=== PATIENT | male | born 1990 | race Caucasian/White ===

== ENCOUNTER 2024-06-15 21:48 | Emergency (ER) | payer OTHER ==
[2024-06-15 22:30] LABS: Absolute Basophils 0.1 K/uL (0-0.5); Absolute Eosinophils 0.1 K/uL (0-0.5); Absolute Monocytes 0.6 K/uL (0.1-1.3); Basophils % 0.9 % (0-1.3); Eosinophils % 2.4 % (0-4.4); Hematocrit 45.8 % (39.6-49.0); Hemoglobin 15.9 g/dL (13.6-17.9); Lymphocytes % 34.7 % (15.3-44.8); MCH 30.8 pg (27.0-35.0); MCHC 34.7 g/dL (32.0-36.0); MCV 88.7 fL (80-100); MPV 9.6 fL (7.6-11.3); Monocytes % 10.4 % (3.3-12.3); Neutrophils % 51.6 % (41.7-73.7); Nucleated Red Blood Cells % 0.1 % (0-0); Platelets 205 thou/uL (152-406); RBC Red Blood Cell Count 5.16 M/uL (4.33-5.43); Red Cell Distribution Width 13.2 % (12.1-15.2)
[2024-06-15 22:39] LABS: ALT/SGPT 25 U/L (16-61); AST/SGOT 13 U/L (15-37); Albumin/Globulin Ratio 1.2 (1.1-1.8); Alkaline Phosphatase 68 U/L (45-117); Anion Gap 9.5 mEq/L (5.0-15.0); BUN Blood Urea Nitrogen 12 mg/dL (7-18); Bicarbonate 25 mEq/L (21-32); Bilirubin Direct < 0.2 mg/dL (0-0.2); Bilirubin Indirect, Calculated 0.2 mg/dL (0.2-0.8); Bilirubin Total 0.4 mg/dL (0.2-1.0); Globulin 3.4 g/dL (2.3-3.5); Glomerular Filtration Rate 92 ml/min (=/>90); Glucose Level 96 mg/dL (74-106); Magnesium 2.2 mg/dL (1.6-2.4); NT PRO-BNP 7 pg/mL (<125); Potassium 3.5 mEq/L (3.5-5.1); Protein, Total 7.4 g/dL (6.4-8.2); Sodium Level 138 mEq/L (136-145); Troponin High Sensitivity 4.8 pg/mL (<58.9)
--- NOTE | 2024-06-15 23:22 | EDPHYS ---
Physician Documentation [facility] Name: Shantanu Evans Age: 34 yrs Sex: Male : 1990 Arrival Date: 06/15/2024 Time: 21:48 Bed 18 Private MD: ED Physician Flavio Barahona HPI: 06/15 22:25 This 34 yrs old Male presents to ER via EMS with complaints of Chest Pain. kb 22:25 Pt is a 34 year old male who presents for "lung pain" that started one week ago with kb cough. States the pain changed today so he mentioned it to the guards and they called 911. Denies shortness of breath, fever. Historical: - Allergies: 21:54 No Known Allergies; br2 - Immunization history:: Adult Immunizations up to date. - Infectious Disease History:: Denies. - Social history:: Smoking status: Patient/guardian denies using tobacco. ROS: 22:15 Constitutional: As per HPI kb Exam: 22:15 Constitutional: This is a well developed, well nourished patient who is awake, alert, kb and in no acute distress. Head/Face: Normocephalic, atraumatic. ENT: Moist Mucous membranes Cardiovascular: Regular rate Respiratory: Respirations even and unlabored. No increased work of breathing. Talking in full sentences Skin: Warm, dry with normal turgor. Normal color. MS/ Extremity: Pulses equal, no cyanosis. Neurovascular intact. Full, normal range of motion. Neuro: Awake and alert, GCS 15, oriented to person, place, time, and situation. 22:15 ECG was reviewed by the Attending Physician. Vital Signs: 21:51 BP 151 / 85; Pulse 78; Resp 18; Temp 97.4; Pulse Ox 98% on R/A; Weight 88.45 kg; Height br2 5 ft. 11 in. ; Pain 4/10; 22:52 BP 140 / 85; Pulse 74; Resp 13 S; Pulse Ox 98% on R/A; br2 23:22 BP 137 / 82; Pulse 81; Resp 21 S; Pulse Ox 99% on R/A; br2 21:51 Body Mass Index 27.20 (88.45 kg, 180.34 cm) br2 21:51 Pain Scale: Adult br2 MDM: 21:53 Medical Screening Exam initiated kb 23:07 Differential diagnosis: arrhythmia, pe, acute mi. Data reviewed: vital signs, nurses kb notes. Test considered but Not performed: CT: ct chest considered but ddimer negative. Historians other than the Patient: EMS: [facility]. Scoring Tools PERC Rule for PE Age >/= 50 No HR >/= 100 No O2 Sat Room Air < 95% No Unilateral leg swelling No Hemoptysis No Recent surgery or trauma </= 4 wks ago requiring treatment with general anesthesia No (0 pt) Prior PE or DVT No Hormone use (Oral contraceptives, hormone replacement or estrogenic hormones use in males or female patients No. Counseling: I had a detailed discussion with the patient and/or guardian regarding the historical points, exam findings, and any diagnostic results supporting the discharge/admit diagnosis, lab results, radiology results, the need for outpatient follow up, a family practitioner, to return to the emergency department if symptoms worsen or persist or if there are any questions or concerns that arise at home. 23:22 Independent interpretation of the following test(s) in the Emergency Department X-Ray: kb My interpretation is no acute finding. 06/15 21:54 Order name: Basic Metabolic Panel; Complete Time: 22:50 kb 06/15 21:54 Order name: CBC with Diff; Complete Time: 22:35 kb 06/15 21:54 Order name: D-Dimer; Complete Time: 22:50 kb 06/15 21:54 Order name: LFT's; Complete Time: 22:50 kb 06/15 21:54 Order name: Magnesium; Complete Time: 22:50 kb 06/15 21:54 Order name: NT PRO-BNP; Complete Time: 22:50 kb 06/15 21:54 Order name: Troponin HS; Complete Time: 22:50 kb 06/15 21:54 Order name: XRAY Chest (1 view) kb 06/15 21:54 Order name: Cardiac monitoring; Complete Time: 21:59 kb 06/15 21:54 Order name: EKG - Nurse/Tech; Complete Time: 22:00 kb 06/15 21:54 Order name: IV Saline Lock; Complete Time: 22:08 kb 06/15 21:54 Order name: Labs collected and sent; Complete Time: 22:08 kb 06/15 21:54 Order name: O2 Per Protocol; Complete Time: 22:08 kb 06/15 21:54 Order name: O2 Sat Monitoring; Complete Time: 22:09 kb EC:15 Rate is 77 beats/min. Rhythm is regular. QRS [place] is Normal. DE interval is normal at kb 154 msec. QRS interval is normal at 92 msec. QT interval is normal at 402 msec. Administered Medications: 23:35 Drug: HYDROcodone-acetaminophen PO 5 mg-325 mg 1 tabs PO once Route: PO; br2 23:37 Follow up: Response: Medication administered at discharge. br2 Disposition Summary: 06/15/24 23:22 Discharge Ordered Notes: Location: Home kb Condition: Stable kb Diagnosis - Chest pain, unspecified kb Followup: kb - With: Emergency Department - When: As needed - Reason: Worsening of condition Followup: kb - With: Private Physician - When: 2 - 3 days - Reason: Recheck today's complaints, Continuance of care, Re-evaluation by your physician Discharge Instructions: - Discharge Summary Sheet kb - Nonspecific Chest Pain, Adult, [id number] kb Forms: - Medication Reconciliation Form kb - Antibiotic Education kb - Prescription Opioid Use kb - Patient Portal Instructions kb - Leadership Thank You Letter kb Addendum: 06/17/2024 23:46 I was immediately available for consultation during this patient's visit. I did not e c2 personally see the patient or discuss the patient with the FRANCISCO. . Signatures: Dispatcher [employer] Kathryn Farah, POULTRY CLEANER-C POULTRY CLEANER-Ckb Flavio Barahona MD MD ec2 Lisa Alvarez RN RN br2 Corrections: (The following items were deleted from the chart) 06/15 21:54 21:54 BASIC METABOLIC PANEL+C.LAB.BRZ ordered. EDMS EDMS 21:54 21:54 CBC+H.LAB.BRZ ordered. EDMS EDMS 21:54 21:54 D-DIMER+COAG.LAB.BRZ ordered. EDMS EDMS 21:54 21:54 HEPATIC FUNCTION+C.LAB.BRZ ordered. EDMS EDMS 21:54 21:54 MAGNESIUM+C.LAB.BRZ ordered. EDMS EDMS 21:54 21:54 PROBNP+C.LAB.BRZ ordered. EDMS EDMS 21:54 21:54 Troponin High Sensitivity+C.LAB.BRZ ordered. EDMS EDMS 21:54 21:54 Chest Single View+RAD.RAD.BRZ ordered. EDMS EDMS
--- NOTE | 2024-06-15 23:22 | ER ---
Nurse's Notes [facility] Name: Shantanu Evans Age: 34 yrs Sex: Male : 1990 Arrival Date: 06/15/2024 Time: 21:48 Bed 18 Private MD: Diagnosis: Chest pain, unspecified Presentation: 06/15 21:51 Chief complaint: Patient states: PT C/O CP FOR THE LAST 3 DAYS RADIATES TO BACK, br2 NAUSEA. Coronavirus screen: Client denies travel out of the [place] in the last 14 days. Ebola Screen: Patient denies exposure to infectious person. Initial Sepsis Screen: Does the patient meet any 2 criteria? No. Patient's initial sepsis screen is negative. Does the patient have a suspected source of infection? No. Patient's initial sepsis screen is negative. Risk Assessment: Do you want to hurt yourself or someone else? Patient reports no desire to harm self or others. Onset of symptoms was May 12, 2024. 21:51 Method Of Arrival: EMS: [facility] br2 21:51 Acuity: CORIE 3 br2 Triage Assessment: 21:54 General: Appears in no apparent distress. comfortable, Behavior is calm, cooperative, br2 flat. Pain: Complains of pain in anterior aspect of left upper chest Pain radiates to left scapular area Pain currently is 4 out of 10 on a pain scale. Historical: - Allergies: 21:54 No Known Allergies; br2 - Immunization history:: Adult Immunizations up to date. - Infectious Disease History:: Denies. - Social history:: Smoking status: Patient/guardian denies using tobacco. Screenin:51 [facility] ED Fall Risk Assessment (Adult) History of falling in the last 3 months, br2 including since admission No falls in past 3 months (0 pts) Confusion or Disorientation No (0 pts) Intoxicated or Sedated No (0 pts) Impaired Gait No (0 pts) Mobility Assist Device Used No (0 pt) Altered Elimination No (0 pt) Score/Fall Risk Level 0 - 2 = Low Risk Oriented to surroundings. Abuse screen: Denies threats or abuse. Denies injuries from another. Nutritional screening: No deficits noted. Tuberculosis screening: No symptoms or risk factors identified. Assessment: 21:51 Reassessment: see triage assessment. br2 21:51 Pain: Pain began 3 hours ago. 2-3 days ago. Cardiovascular: Rhythm is regular. br2 23:02 Reassessment: No changes from previously documented assessment. Patient and/or family br2 updated on plan of care and expected duration. Pain level reassessed. Patient is alert, oriented x 3, equal unlabored respirations, skin warm/dry/pink. Vital Signs: 21:51 BP 151 / 85; Pulse 78; Resp 18; Temp 97.4; Pulse Ox 98% on R/A; Weight 88.45 kg; Height br2 5 ft. 11 in. ; Pain 4/10; 22:52 BP 140 / 85; Pulse 74; Resp 13 S; Pulse Ox 98% on R/A; br2 23:22 BP 137 / 82; Pulse 81; Resp 21 S; Pulse Ox 99% on R/A; br2 21:51 Body Mass Index 27.20 (88.45 kg, 180.34 cm) br2 21:51 Pain Scale: Adult br2 ED Course: 21:49 Patient arrived in ED. jj6 21:51 Lisa Alvarez, HONG is Primary Nurse. br2 21:51 Patient has correct armband on for positive identification. Bed in low position. Call br2 light in reach. Side rails up X 1. Provided Education on: PLAN OF CARE. Client placed on continuous cardiac and pulse oximetry monitoring. NIBP monitoring applied. inventory control manager on. Pulse ox on. PT IS IN POLICE CUSTODY WITH 3 SECURITY OFFICERS AT BEDSIDE. 21:53 Kathryn Rossi FNP-C is [facility]. kb 21:53 Flavio Barahona MD is Attending Physician. kb 21:54 Triage completed. br2 21:54 Arm band placed on right wrist. br2 22:01 EKG done, by technical research scientist. af3 22:08 Inserted saline lock: 20 gauge in right antecubital area, using aseptic technique. af3 Blood collected. Flushed with 10 mL NS. 22:45 XRAY Chest (1 view) In Process Unspecified. EDMS 23:35 No provider procedures requiring assistance completed. IV discontinued, intact, br2 bleeding controlled, No redness/swelling at site. Pressure dressing applied. Patient maintains SpO2 saturation greater than 95% on room air. Administered Medications: 23:35 Drug: HYDROcodone-acetaminophen PO 5 mg-325 mg 1 tabs PO once Route: PO; br2 23:37 Follow up: Response: Medication administered at discharge. br2 Medication: 23:37 VIS not applicable for this client. br2 Outcome: 23:22 Discharge ordered by MD. walsh 23:35 Discharged to Law Enforcement br2 23:35 Condition: good 23:35 Discharge instructions given to patient, police, Instructed on discharge instructions, follow up and referral plans. Demonstrated understanding of 23:37 Patient left the ED. br2 Signatures: Dispatcher [employer] EDMS Kathryn Rossi, NECKTIE STITCHER-C NECKTIE STITCHER-Regina Worthy jj6 Lisa Alvarez, RN RN br2 Rachel Teresa3
[2024-06-15] MEDS ORDERED: HYDROCODONE/APAP 5/325 MG TAB ONE (23:31)
[2024-06-15 23:57] VITALS: TEMP 97.4
[2024-06-15 23:58] VITALS: BP 137/82; O2SAT 99
--- NOTE | 2024-06-16 | RAD REPORT ---
PROCEDURE: XR Chest, 1 View CLINICAL INDICATION: The patient is 34 years old and is Male; Chest pain. TECHNIQUE: Frontal view of the chest. COMPARISON: None. FINDINGS: LUNGS: No discrete focal consolidation. PLEURAL SPACE: No appreciable pleural effusion or pneumothorax. MEDIASTINUM: Normal cardiomediastinal contours, allowing for technique and positioning. BONES/JOINTS: No acute osseous abnormality. IMPRESSION: No acute cardiopulmonary abnormality. Electronically signed by: Justin Gee MD 06/15/2024 11:52 PM [facility] Due to temporary technical issues with the PACS/[employer] reporting system, reports are being larry d by the in-house radiologist without review as a courtesy to ensure prompt reporting the interpreting radiologist is fully responsible for the content of the report. Transcribed Date/Time: 06/16/2024 12:00 AM
--- NOTE | 2024-06-18 10:50 | EKG ---
Test Date: 2024-06-15 Test Time: 21:58:54 Beautician Apprentice: AF MEASUREMENT RESULTS: Intervals: Rate: 77 IA: 154 QRSD: 92 QT: 356 QTc: 402 [place]: P: 55 IA: 154 QRS: -36 T: 54 INTERPRETIVE STATEMENTS: Normal sinus rhythm Left axis deviation Abnormal ECG No previous ECG available for comparison Electronically Signed On 06-18-24 10:49:39 INSTALLATION SUPERVISOR by Isaac Ellis
== END 2024-06-15 23:37 | disposition home or self-care (01) ==
LOC: ER 21:48
DX: R07.9 Chest pain, unspecified (principal)
CPT/HCPCS: 36415; 71045; 80048; 80076; 83735; 83880; 84484; 85025; 85379; 93005; 99285